=== PATIENT | male | born 1970 | race Caucasian/White ===

== ENCOUNTER 2016-08-30 18:50 | Inpatient (IN) | payer MEDICARE, OTHER ==
--- NOTE | ~2016-08-30 | DS ---
Discharge Summary [place] [id number] [place]. [address] NAME: CALDERON DIETRICH : 68 STATUS : DIS IN PAT#: [id number] AGE: 46 ADM/REG DATE : 08/31/16 MR#: [id number] REPORT SERV DATE: 09/02/16 DICTATED BY: MOHAMUD CABRERA DATE: 09/02/16 REPORT STATUS : Draft TRANSCRIBED BY: MODL DATE: 09/02/16 ADMISSION DATE: 08/31/2016 DISCHARGE DATE: 09/02/2016 ADDENDUM: DATE OF : 09/02/2016 at 4:15 p.m. For details of the patient's hospital course, please see my previous discharge summary. The patient was made comfort measures. All pressors, antibiotics, and labs were withdrawn. The patient was kept comfortable with p.r.n. morphine and Ativan and at 4:15 p.m. on 09/02/2016. /YESENIA Mohamud Cabrera M.D. / [id number] CC: Cristian Zapien MD
--- NOTE | ~2016-08-30 | HP ---
History And Physical [place] [id number] [facility] [place]. [address] NAME: CALDERON POTTS : 68 STATUS : ADM IN [facility]#: [id number] AGE: 46 ADM/REG DATE : 08/31/16 MR#: [id number] REPORT SERV DATE: 08/31/16 DICTATED BY: WILBERT REED DATE: 08/30/16 REPORT STATUS : Draft TRANSCRIBED BY: MODL DATE: 08/30/16 DATE OF ADMISSION: 08/30/2016 CHIEF COMPLAINT: Worsening decubitus ulcer as reported by his home health nurse and abdominal pain. HISTORY OF PRESENT ILLNESS: This is a 46-year-old male with a history of spina bifid, paralyzed below his waist, chronic sacral decubitus ulcers, anxiety, depression, and a chronic neurogenic bladder with urostomy and colostomy, who presents to the emergency room at [facility] with the above-mentioned complaint. History is obtained from the patient, and reviewing data available on the [employer] system. According to Mr. Potts who actually lives in the house along with couple other people along with a caregiver as well, he was told by his home health caregiver that his sacral decubitus ulcer was getting worse and is really bad today. She advised going to the emergency room to have it looked at. He has also had some abdominal pain, mostly in the sides, both sides, which he thinks he has had for three to four days or something now. He denied any fever or chills during this time, but then he spent most of his time in bed sleeping. In the emergency room, initial workup revealed he had a urinary tract infection with possibly pyelonephritis and sepsis. He presented with hypotension which even with fluid boluses continued to decline. Hospitalist Service is asked to admit him for further evaluation and treatment. At the time of my evaluation, he was alert, awake, and oriented, was able to give a reliable history. He denied any chest pain or palpitations. He had no orthopnea. He had no cough, hemoptysis, night sweats, or weight loss. He has not had any falls or loss of consciousness. He reported no recent fevers or shaking chills. Did not have any nausea, vomiting, or diarrhea. No other history of recent hematemesis, hematochezia, or hematuria. SOCIAL HISTORY: He does not smoke, drink, or use recreational drugs. FAMILY HISTORY: Noncontributory. MEDICATIONS: His medications at home were reviewed by me in the chart today and reordered by me. REVIEW OF SYSTEMS: As in history of present illness. All other systems were reviewed in detail and quite unremarkable. PHYSICAL EXAMINATION: GENERAL: This is a pleasant 46-year-old male who is not in any acute distress. HEENT: His head is atraumatic and normocephalic. He is alert, awake, oriented to time, place, and person. His pupils are equal, reacting to light and accommodating. External History And Physical [address] [address] NAME: CALDERON POTTS : 68 STATUS : ADM IN [facility]#: [id number] AGE: 46 ADM/REG DATE : 08/31/16 MR#: [id number] REPORT SERV DATE: 08/31/16 DICTATED BY: WILBERT REED DATE: 08/30/16 REPORT STATUS : Draft TRANSCRIBED BY: YESENIA DATE: 08/30/16 ocular muscles are intact. Membranes are moist and pink. Sclerae are nonicteric. NECK: Supple with no jugular venous distention, lymphadenopathy, or thyromegaly. LUNGS: Clear to auscultation with no wheezes, rubs, or crackles. HEART: Heart sounds were regular with no murmurs, rubs, or gallops. ABDOMEN: Soft and nontender. Bowel sounds are present. There was no organomegaly. EXTREMITIES: No cyanosis, clubbing, or edema. NEUROLOGIC: Grossly intact, although he has paralysis below his waist and has spina bifid. He moves his upper extremities, and higher functions appeared intact. VITAL SIGNS: Temperature of 97.7 upon arrival, heart rate was 109, respirations were 19 a minute, and blood pressure upon arrival was 85/51. Oxygen saturations were 100% on 2-3 L via nasal cannula. LABORATORY DATA: Reviewed on the [employer] system showed a procalcitonin of 2.12. Sodium was 139, potassium 4.5, chloride 111, CO2 of 16, BUN was 76 with a creatinine of 2.49, and blood glucose was 86. His calcium today was 7.8, magnesium was not evaluated. His alkaline phosphatase was 209. ALT and AST were within normal limits. CBC showed a white blood cell count of 15,000, hemoglobin was 11.3, hematocrit 36.1, and platelet count was 465,000. His urinalysis today showed large leukocyte esterase, nitrite was negative. There were 128 wbc's and many bacteria. Films of the chest x-ray were reviewed by me on the PACS today and interpreted by me. Per my interpretation, there is spinal hardware, no cardiomegaly, lung degroot were clear with no lobar consolidations or effusions. A 12-lead EKG done in the emergency room was reviewed and interpreted by me. There is sinus tachycardia with a rate of 103. IMPRESSION: 1. Worsening sacral decubitus ulcers. 2. Urinary tract infection, pyelonephritis. 3. Septic shock. 4. Acute on chronic kidney disease. 5. Anxiety and depression. 6. Metabolic acidosis. 7. Spina bifid. PLAN: We will admit the patient to the Hospitalist Service in the Medical Intermediate Care Unit due to his hypotension and septic shock. We will start him on aggressive volume replacement. We will give him another liter of lactated Ringer's and continue replacement therapy and if that does not bring his blood pressures up we will start him on Levophed intravenously to keep his mean arterial pressure greater than 65 mmHg. He may need another access as well and this is currently being discussed. I may have to put a central line in. Meanwhile, we will go ahead and follow chemistry, electrolytes, and CBC in the morning and replete as needed. We will be following this with a repeat lactate in three hours. We will History And Physical [address] [address] NAME: CALDERON POTTS : 68 STATUS : ADM IN [facility]#: [id number] AGE: 46 ADM/REG DATE : 08/31/16 MR#: [id number] REPORT SERV DATE: 08/31/16 DICTATED BY: WILBERT REED DATE: 08/30/16 REPORT STATUS : Draft TRANSCRIBED BY: YESENIA DATE: 08/30/16 also get Wound Care and consult Dr. Rouse to see his sacral decubitus ulcer and do what we need to do. I have discussed the above plans with the patient, explained to him about seriousness of his current illness and prognosis. He understands, wishes to be told everything and agrees with the above plan. He will be on unfractionated heparin for DVT prophylaxis while he is here. Hospitalist Service will be following him during his stay here. Total critical care time spent with the patient will be 50 minutes. HUMBLE Wilbert Reed M.D. / [phone]
--- NOTE | ~2016-08-30 | CN ---
Consultation Report [facility] [address] [place]. [address] NAME: CALDERON DIETRICH : 68 STATUS : ADM IN [facility]#: [id number] AGE: 46 ADM/REG DATE : 08/31/16 MR#: [id number] REPORT SERV DATE: 08/31/16 DICTATED BY: ARAM MERCEDES DATE: 08/31/16 REPORT STATUS : Draft TRANSCRIBED BY: MODL DATE: 08/31/16 CARDIOVASCULAR CONSULTATION DATE OF CONSULTATION: 08/31/2016 INDICATION: Elevated troponin. HISTORY OF PRESENT ILLNESS: The patient is a 46-year-old man with a history of spina bifida and paraplegia. He has a history of a neurogenic bladder, status post urostomy and colostomy. He is admitted to [facility] with a worsening and large sacral decubitus ulcer. He was subsequently found to have a urinary tract infection and urinary sepsis with severe hypotension. He is now in the medical intensive care unit on 45 mcg of Levophed and on vasopressin. He is tachycardic, in sinus tachycardia to the 130s. In this setting, his troponin has increased from 0.71 to 6.76. He has no symptoms of chest pain or dyspnea. He is awake and alert. His EKG shows sinus tachycardia with nonspecific T-wave abnormalities, low voltage, but no evidence of an ST-elevation [place]. PAST MEDICAL HISTORY: 1. Spina bifida. 2. Paraplegia. 3. Decubitus ulcers. 4. Neurogenic bladder. 5. Status post urostomy. 6. Status post colonoscopy. SOCIAL HISTORY: He lives in [place] [facility]. He does not smoke or drink alcohol. FAMILY HISTORY: There is no family history of early coronary artery disease. REVIEW OF SYSTEMS: A complete review of systems was obtained, which is negative in detail, except as mentioned above in the HPI. PHYSICAL EXAMINATION: BLOOD PRESSURE: 100/60. PULSE: 130 and regular. RESPIRATIONS: 14. GENERAL: Comfortable, in no acute distress. HEENT: Anicteric. No xanthelasma. Lips without cyanosis. NECK: No JVD. Carotids 2+ and symmetric. No carotid bruits. LUNGS: CTA bilaterally. No wheezes or rhonchi. No accessory muscle use. COR: Tachycardic. Normal S1 and S2. ABD: Soft, nontender, nondistended. Normal bowel sounds. No abdominal bruits. EXT: Both lower extremities are paralyzed with contractures. There is mild bilateral lower extremity edema. The extremities are cold and mottled. SKIN: Warm and dry. No venous stasis changes. Consultation Report [place] [address] [place]. [address] NAME: CALDERON DIETRICH : 68 STATUS : ADM IN PAT#: [id number] AGE: 46 ADM/REG DATE : 08/31/16 MR#: [id number] REPORT SERV DATE: 08/31/16 DICTATED BY: ARAM MERCEDES DATE: 08/31/16 REPORT STATUS : Draft TRANSCRIBED BY: MODGlenys DATE: 08/31/16 MS: No kyphosis. NEURO/PSYCH: Oriented x3. No anxiety or depression. LABORATORY STUDIES: Troponin initially 0.71, up to 6.76. Potassium of 4.0, creatinine of 1.91. EK-lead EKG shows sinus tachycardia, 135 beats per minute. Poor R-wave progression. Nonspecific T-wave abnormalities noted. IMPRESSION: This is a 46-year-old man with multiple chronic medical problems stemming from spina bifida and paraplegia. He is admitted with a severe septic shock in the setting of urosepsis and possibly sepsis secondary to a large sacral decubitus ulcer. He is on very high doses of pressors. I think this accounts for his troponin elevation, which for now appears most consistent with demand ischemia. I have recommended checking an echocardiogram. The patient expresses clear wishes to have any possible cardiac-related events treated conservatively. SASHA/YESENIA Aram Mercedes M.D. / [id number] CC: Cristian Zapien MD
--- NOTE | ~2016-08-30 | OP ---
Record Of Operation [facility] [address] [place]. [address] NAME: CALDERON DIETRICH : 68 STATUS : ADM IN [facility]#: [id number] AGE: 46 ADM/REG DATE : 08/31/16 MR#: [id number] REPORT SERV DATE: 08/31/16 DICTATED BY: WILBERT REED DATE: 08/31/16 REPORT STATUS : Draft TRANSCRIBED BY: MODGlenys DATE: 08/31/16 DATE OF PROCEDURE: PROCEDURE PERFORMED: Left subclavian central venous line placement. INDICATION: Severe sepsis and shock. PROCEDURE IN DETAIL: Procedure was performed emergently in the emergency room. The patient's left chest was prepped. He was completely draped and using an Arrow Triple Lumen kit, the left subclavian vein was entered without any difficulty or bleeding. A catheter was placed over guidewire using Seldinger technique in the usual fashion. Lines were flushed and catheter was secured in place. A postprocedure chest x-ray was viewed by me and it had no complications. The catheter was in good position. The patient tolerated the procedure well and vitals were stable. We will let nursing staff know as well. /YESENIA Wilbert Reed M.D. / [id number] CC: Cristian Zapien MD
--- NOTE | ~2016-08-30 | DS ---
Discharge Summary [facility] [address] [place]. [address] NAME: CALDERON DIETRICH : 68 STATUS : ADM IN [facility]#: [id number] AGE: 46 ADM/REG DATE : 08/31/16 MR#: [id number] REPORT SERV DATE: 09/02/16 DICTATED BY: MOHAMUD CABRERA DATE: 09/02/16 REPORT STATUS : Draft TRANSCRIBED BY: MODL DATE: 09/02/16 ADMISSION DATE: 08/31/2016 DISCHARGE DATE: 09/02/2016 ADMISSION DIAGNOSES: 1. Worsening decubitus ulcer. 2. Septic shock. 3. Urinary tract infection, possible pyelonephritis. 4. Spina bifida. 5. Acute on chronic kidney disease. 6. Anxiety and depression. 7. Metabolic acidosis. DISCHARGE DIAGNOSES: 1. Septic shock. 2. Urinary tract infection with gram-negative rola. 3. Type 2 stress-induced myocardial infarction. 4. Acute kidney injury. 5. Persistent metabolic acidosis. 6. Respiratory failure. The remainder of the diagnoses are as above. HOSPITAL COURSE: This is a 46-year-old patient, who was admitted to the Hospitalist Service from his [facility] and has a known diagnosis of paraplegia, chronic sacral decubitus ulcers, neurogenic bladder, colostomy, urostomy, previous history of sepsis in 11/2015 that was associated with acute kidney injury. The patient initially was seen by the hospitalist service, but then became hypotensive and had a central line placed in the emergency room and then transferred to the MICU, where the Critical Care Service took over. The patient was cultured and as of this dictation, blood cultures that were drawn on 08/30 are negative. Urinary culture is growing out greater than 100,000 colonies of gram-negative rods. The patient was then started on Zosyn and vancomycin and had a tremendous leukocytosis, up to as high as 86,000 as of this dictation and so his antibiotic was changed to Merrem with discontinuation of vancomycin. He had a persistent hypotension. Cortisol level was checked and was 14.6. The patient was then subsequently started on Solu-Cortef at 100 mg IV q.6. He required Levophed. The patient continued to be hypotensive and required epinephrine, which eventually was transitioned to Levophed and vasopressin. The Levophed drip was changed to weight based and on 09/02, we maxed out the accepted dosage on the Levophed and the vasopressin with very poor response to blood pressure; in fact, blood pressure was not even registering by cuff only, a mean was obtained. The patient has a POLST form from his previous hospitalization, and code status was discussed with both the mother and Osmin Alegria, who is the patient's substation wireman and apparent POA, although paperwork was never able to be produced. As per the patient's wishes and his own signature on his POLST form, he wishes to be a DNR and in fact, comfort measures. It was decided that the patient undergo conservative treatment with IV antibiotics, fluids, and pressors in hopes that there would be improvement. He was also seen by Cardiology, Dr. Gonzalez White for elevated troponins, and it was thought that his troponins were elevated secondary to his septic shock and high-dose Discharge Summary [address] [address] NAME: CALDERON DIETRICH : 68 STATUS : ADM IN PAT#: [id number] AGE: 46 ADM/REG DATE : 08/31/16 MR#: [id number] REPORT SERV DATE: 09/02/16 DICTATED BY: MOHAMUD CABRERA DATE: 09/02/16 REPORT STATUS : Draft TRANSCRIBED BY: YESENIA DATE: 09/02/16 pressors, most consistent with demand ischemia. Echocardiogram was done on 08/31, which showed an ejection fraction of 10% to 15% without any evidence of left ventricular thrombus. The patient continued to deteriorate throughout the 09/02. His condition was discussed both with Osmin Alegria and the patient's mother. Since he was not responding to aggressive therapy with pressors, IV fluids and antibiotics, it was thought best to make the patient comfort measure as per his wishes, so on the afternoon of 09/02, pressors, antibiotics, BiPAP, lab work, and chest x-rays were all discontinued, and the patient was made comfort measures with removal of BiPAP and just use of oxygen. The patient will be kept comfortable with IV morphine and IV Ativan. /MODL Mohamud Cabrera M.D. / [id number] CC: Cristian Zapien MD
--- NOTE | ~2016-08-30 | CN ---
Consultation Report [facility] [address] [place]. [address] NAME: CALDERON DIETRICH : 68 STATUS : ADM IN PAT#: [id number] AGE: 46 ADM/REG DATE : 08/31/16 MR#: [id number] REPORT SERV DATE: 08/31/16 DICTATED BY: LILLIAN ROUSE III DATE: 08/31/16 REPORT STATUS : Draft TRANSCRIBED BY: MODL DATE: 08/31/16 DATE OF CONSULTATION: 08/31/2016 HISTORY OF PRESENT ILLNESS: The patient is a 46-year-old white male with long history of sacral decubitus ulcers and other skin breakdown areas secondary to his spina bifida and functional paraplegia with history of hydrocephalus. He was brought in with sepsis secondary to the above problems. He has a history of septic shock and worsening sacral decubitus ulcers as well as some other leg ulcers, especially on the right side. He has a urinary tract infection; acute kidney injury with chronic kidney disease, superimposed; leukocytosis; anxiety and depression, situational; history of neurogenic bladder; spina bifida with hydrocephaly and a shunt; sinus tachycardia; and metabolic acidosis. The patient has a long history of problems, including paraplegia; shunt placement for hydrocephaly; spina bifida, scoliosis, back surgery, multiple; colostomy, longstanding; ileostomy with ileal loop urostomy; chronic kidney disease; frequent UTIs; history of longstanding pressure ulcers, treated in the past with incision, drainage and other therapies; history of anxiety and depression. He had leg surgery as a child, but none recently. SOCIAL HISTORY: He lives with friend in a mobile home with hospital bed and wheelchair with home health care by [facility] for cure of his decubiti. The patient has negative social history for alcohol and tobacco. PHYSICAL EXAMINATION: The patient is a 46-year-old white male with great distortion on physical exam. He has neck stiffening from osteoarthritis. Chest was with decreased inspiratory effort. Heart, tachycardia over 100. His abdomen was soft with urostomy and colostomy, but no particular tenderness. He has lots of distortion from his pelvis distally. He has a sacral area that is a massive area involved that is 25 x 33 x 0.5 cm stage IV breakdown decubitus with some minimal bone erosion that is palpable with necrotic slough at breakdown noted. He has a right lateral leg ulceration that is 5 x 3 cm with a depth of 0.8, this is from a wheelchair trauma that is seropurulent. He also has a right lateral distorted foot with an ulcer on the lateral aspect at the fifth metatarsophalangeal junction that is 2 x 1.7 x 0.4 ulceration. He has some breakdown even in the left heel areas that is not fully ulcerated. ASSESSMENT AND PLAN: Would recommend continuing with the Clinitron bed, offload. We will use Santyl ointment as an enzymatic debrider to all the ulcers using as a thin film, changed daily with Aquacel Ag for absorption and burn fluffs. Soft heel protector has been recommended. Zinc oxide to the periwounds and the left heel as well as Trey one packet b.i.d. to help with his supplementation of his malnutrition, which is clearly in need of nutritional support. At this time, there is no indication for mechanical debridement. Primarily working on offloading, enzymatic debridement, and nutritional supplementation as the treatment of choice. Orders have been left and the patient explained as to the plan. He is very hesitant to use the Trey since he prefers the protein shakes, which may be a problem from a compliance standpoint. Consultation Report [address] [place]. [address] NAME: CALDERON DIETRICH : 68 STATUS : ADM IN [facility]#: [id number] AGE: 46 ADM/REG DATE : 08/31/16 MR#: [id number] REPORT SERV DATE: 08/31/16 DICTATED BY: LILLIAN ROUSE III DATE: 08/31/16 REPORT STATUS : Draft TRANSCRIBED BY: YESENIA DATE: 08/31/16 LARRY/YESENIA Lillian Rouse III, M.D. / [id number] CC: Cristian Zapien MD
[~2016-08-30 18:50] MED LIST: LEVAQUIN5T PO; MULTIPLE VIT PO; VALIUM10 MG PO; VIBRATAB100 MG PO; ZOFRAN4 PO
[2016-08-30 21:34] LABS: BASOPHILS 0.7 %; EOSINOPHILS 1.1 %; EOSINOPHILS ABSOLUTE 0.16 10/3/uL (0.0-0.53); ER CBC TAT 0 Hrs 21 Mins; HEMATOCRIT 36.1 % (40.0-51.0); HEMOGLOBIN 11.3 g/dL (13.6-17.8); IMMATURE GRANULOCYTES 1.2 %; IMMATURE GRANULOCYTES ABSOLUTE 0.18 10/3/uL (0.0-0.11); LYMPHOCYTES 14.4 %; LYMPHOCYTES ABSOLUTE 2.16 10/3/uL (0.67-4.30); MANUAL DIFF NO %; MEAN CORPUS HGB CONC 31.3 g/dL (32.0-36.0); MEAN CORPUSCULAR HEMOGLOB 26.5 pg (26.0-34.0); MEAN CORPUSCULAR VOLUME 84.7 fL (80-100); MONOCYTES 11.3 %; MONOCYTES ABSOLUTE 1.69 10/3/uL (0.21-1.20); NEUTROPHILS 71.3 %; NEUTROPHILS ABSOLUTE 10.68 10/3/uL (2.02-8.40); PLATELET COUNT 465 10/3/uL (150-400); RED CELL COUNT 4.26 10/6/uL (4.7-6.1)
[2016-08-30 21:38] LABS: ASCORBIC ACID (UR NOT ORDER) NEG (NEG); BILIRUBIN, URINE NEGATIVE (NEG); ER URINALYSIS TAT 0 Hrs 25 Mins; KETONE, URINE NEGATIVE (NEG); LEUKOCYTE ESTERASE(NOT OR LARGE (NEG); WBC (NOT ORDERED) (RFLEX) 128 (0-5)
[2016-08-30 21:42] LABS: NITRITE (URINE) NEG (NEG)
[2016-08-30 21:51] LABS: CALCIUM, SERUM 7.8 MG/DL (8.5-10.4); CHLORIDE, SERUM 111 MMOL/L (96-112); CO2 (CARBON DIOXIDE) 16 MMOL/L (24-34); SGPT(ALT) 20 U/L (5-65); SODIUM, SERUM 139 MMOL/L (135-148); TOTAL BILIRUBIN 0.3 MG/DL (0-1.2); TOTAL PROTEIN 5.9 G/DL (6.0-8.5)
[2016-08-30 21:52] LABS: A/G RATIO 0.3 (0.7-1.9); ALBUMIN 1.2 G/DL (3.5-5.0); ALKALINE PHOSPHATASE 209 U/L (45-117); BUN (BLOOD UREA NITROGEN) 76 MG/DL (6-23); CREATININE 2.49 MG/DL (0.70-1.30); GFR AFRICAN AMERICAN 34 ML/MIN (>=60); GFR NON AFRICAN AMERICAN 30 ML/MIN (>=60); GLOBULIN 4.7 G/DL (2.5-4.1); GLUCOSE, SERUM 86 MG/DL (60-99); POTASSIUM, SERUM 4.5 MMOL/L (3.5-5.3); SGOT(AST) 14 U/L (5-40)
[2016-08-30 22:04] LABS: BAND NEUTROPHILS 4 %; EOSINOPHILS 2 %; ER DIFF TAT 0 Hrs 51 Mins; LYMPHOCYTES 7 %; LYMPHOCYTES ABSOLUTE (CALC) 1.05 10/3/uL (0.67-4.30); MONOCYTES 4 %; NEUTROPHILS ABSOLUTE (CALC) 13.05 10/3/uL (2.02-8.40); PLATELET ESTIMATE SLT INC (ADEQUATE); SEGMENTED NEUTROPHIL (0) 83 %; TOTAL NUCLEATED CELLS 100
[2016-08-30 22:05] LABS: RBC MORPHOLOGY NORM (NORMAL)
[2016-08-30 22:16] LABS: PROCALCITONIN 2.12 ng/mL (<0.5)
[2016-08-30] MEDS ORDERED: DOX25 PO (22:57)
[2016-08-30] MEDS ORDERED: SODBICAR10 PO (22:57)
[2016-08-30] MEDS ORDERED: MAGOX4 PO (22:58)
[2016-08-30] MEDS ORDERED: MINOCIN100 PO (22:58)
[2016-08-30] MEDS ORDERED: VALIUM10 MG PO (22:59)
[2016-08-31 02:06] LABS: LACTATE 1.6 MMOL/L (0.3-2.4)
[2016-08-31 06:15] LABS: HEMATOCRIT 33.4 % (40.0-51.0); HEMOGLOBIN 10.8 g/dL (13.6-17.8); MEAN CORPUS HGB CONC 32.3 g/dL (32.0-36.0); MEAN CORPUSCULAR HEMOGLOB 26.7 pg (26.0-34.0); MEAN CORPUSCULAR VOLUME 82.5 fL (80-100); MEAN PLATELET VOLUME 9.7 fL (9.2-13.0); PLATELET COUNT 498 10/3/uL (150-400); RBC DISTRIBUTION WIDTH 16.9 % (12.0-16.0); RED CELL COUNT 4.05 10/6/uL (4.7-6.1)
[2016-08-31 06:16] LABS: MANUAL DIFF YES %; WHITE BLOOD CELLS 24.8 10/3/uL (4.5-10.5)
[2016-08-31 06:26] LABS: CALCIUM, SERUM 7.7 MG/DL (8.5-10.4); CHLORIDE, SERUM 111 MMOL/L (96-112); CO2 (CARBON DIOXIDE) 16 MMOL/L (24-34); SODIUM, SERUM 140 MMOL/L (135-148)
[2016-08-31 06:27] LABS: BUN (BLOOD UREA NITROGEN) 58 MG/DL (6-23); CREATININE 1.91 MG/DL (0.70-1.30); GFR AFRICAN AMERICAN 47 ML/MIN (>=60); GFR NON AFRICAN AMERICAN 41 ML/MIN (>=60); GLUCOSE, SERUM 212 MG/DL (60-99); PHOSPHORUS, SERUM 3.3 MG/DL (2.5-4.5)
[2016-08-31 06:50] LABS: BAND NEUTROPHILS 4 %; IMMATURE GRANS ABSOLUTE (CALC) 0.25 10/3/uL (0.0-0.11); LYMPHOCYTES 5 %; LYMPHOCYTES ABSOLUTE (CALC) 1.24 10/3/uL (0.67-4.30); METAMYELOCYTES 1 %; MONOCYTES 6 %; MONOCYTES ABSOLUTE (CALC) 1.49 10/3/uL (0.21-1.20); NEUTROPHILS ABSOLUTE (CALC) 21.82 10/3/uL (2.02-8.40); PLATELET ESTIMATE SLT INC (ADEQUATE); RBC MORPHOLOGY NORM (NORMAL); SEGMENTED NEUTROPHIL (0) 84 %; TOTAL NUCLEATED CELLS 100
[2016-08-31 07:28] LABS: CPK 25 U/L (0-200); TROPONIN I 0.17 NG/ML (<0.05)
[2016-09-01 05:39] LABS: CALCIUM, SERUM 7.7 MG/DL (8.5-10.4); CHLORIDE, SERUM 110 MMOL/L (96-112); GLUCOSE, SERUM 178 MG/DL (60-99); SODIUM, SERUM 138 MMOL/L (135-148)
[2016-09-01 05:49] LABS: BUN (BLOOD UREA NITROGEN) 63 MG/DL (6-23); CO2 (CARBON DIOXIDE) 7 MMOL/L (24-34); CREATININE 2.64 MG/DL (0.70-1.30); GFR AFRICAN AMERICAN 32 ML/MIN (>=60); GFR NON AFRICAN AMERICAN 28 ML/MIN (>=60); PHOSPHORUS, SERUM 7.4 MG/DL (2.5-4.5); POTASSIUM, SERUM 5.3 MMOL/L (3.5-5.3)
[2016-09-01 05:54] LABS: MEAN CORPUSCULAR HEMOGLOB 26.6 pg (26.0-34.0); MEAN PLATELET VOLUME 10.2 fL (9.2-13.0); NUCLEATED RED BLOOD CELLS 0.1 /100WBC (0-0); RBC DISTRIBUTION WIDTH 17.4 % (12.0-16.0)
[2016-09-01 05:55] LABS: HEMATOCRIT 45.5 % (40.0-51.0); HEMOGLOBIN 13.6 g/dL (13.6-17.8); MEAN CORPUS HGB CONC 29.9 g/dL (32.0-36.0); MEAN CORPUSCULAR VOLUME 88.9 fL (80-100); PLATELET COUNT 338 10/3/uL (150-400); RED CELL COUNT 5.12 10/6/uL (4.7-6.1); WHITE BLOOD CELLS 82.5 10/3/uL (4.5-10.5)
[2016-09-01 05:57] LABS: MANUAL DIFF YES %
[2016-09-01 06:50] LABS: ANISOCYTOSIS 1+ (5-10/OIF) (0-5/OIF); BAND NEUTROPHILS 14 %; GIANT PLATELET RARE; IMMATURE GRANS ABSOLUTE (CALC) 2.48 10/3/uL (0.0-0.11); LYMPHOCYTES 7 %; LYMPHOCYTES ABSOLUTE (CALC) 5.78 10/3/uL (0.67-4.30); METAMYELOCYTES 3 %; MONOCYTES 6 %; MONOCYTES ABSOLUTE (CALC) 4.95 10/3/uL (0.21-1.20); PLATELET ESTIMATE ADQ (ADEQUATE); SEGMENTED NEUTROPHIL (0) 70 %; TOTAL NUCLEATED CELLS 100
[2016-09-01 08:43] LABS: INSTRUMENT SERIAL # 8083; PO2 (O2 TENSION) 53 MMHG (79-93)
[2016-09-01 08:44] LABS: CARBOXYHEMOGLOBIN 0.7 % (0-3); HEMOBLOGIN CONTENT 12.5 G/DL (14-18); METHEMOGLOBIN 0.4 % (0-3)
[2016-09-01 09:00] LABS: BE (BASE EXCESS) -13.2 MEQ/L (0 +/- 2.5); BIPAP 16/8 cm.H2O; CARBOXYHEMOGLOBIN 0.6 % (0-3); HEMOBLOGIN CONTENT 12.6 G/DL (14-18); INSTRUMENT SERIAL # 8083; METHEMOGLOBIN 0.6 % (0-3); O2 CONTENT 11.6 VOL% (18-24); PCO2 (CO2 TENSION) 43 MMHG (35-45); PO2 (O2 TENSION) 38 MMHG (79-93); SAMPLE Arterial; pH 7.16 (7.37-7.43)
[2016-09-01 11:20] LABS: BE (BASE EXCESS) -8.7 MEQ/L (0 +/- 2.5); BIPAP 16/8 cm.H2O; CARBOXYHEMOGLOBIN 0.1 % (0-3); HCO3 (ACTUAL BICARBONATE) 18.2 MEQ/L (23-27); HEMOBLOGIN CONTENT 12.4 G/DL (14-18); INSTRUMENT SERIAL # 8083; METHEMOGLOBIN 0.3 % (0-3); O2 CONTENT 14.3 VOL% (18-24); PCO2 (CO2 TENSION) 43 MMHG (35-45); PO2 (O2 TENSION) 48 MMHG (79-93); SAMPLE Arterial; pH 7.25 (7.37-7.43)
[2016-09-02 07:27] LABS: CALCIUM, SERUM 7.1 MG/DL (8.5-10.4); CHLORIDE, SERUM 108 MMOL/L (96-112); CREATININE 3.13 MG/DL (0.70-1.30); GFR AFRICAN AMERICAN 26 ML/MIN (>=60); GFR NON AFRICAN AMERICAN 22 ML/MIN (>=60); POTASSIUM, SERUM 5.1 MMOL/L (3.5-5.3); SODIUM, SERUM 139 MMOL/L (135-148)
[2016-09-02 07:28] LABS: BUN (BLOOD UREA NITROGEN) 67 MG/DL (6-23); CO2 (CARBON DIOXIDE) 14 MMOL/L (24-34); GLUCOSE, SERUM 120 MG/DL (60-99)
[2016-09-02 09:40] LABS: MEAN CORPUS HGB CONC 30.6 g/dL (32.0-36.0); MEAN CORPUSCULAR HEMOGLOB 26.1 pg (26.0-34.0); NUCLEATED RED BLOOD CELLS 0.2 /100WBC (0-0); RBC DISTRIBUTION WIDTH 17.6 % (12.0-16.0)
[2016-09-02 09:53] LABS: HEMATOCRIT 33.3 % (40.0-51.0); HEMOGLOBIN 10.2 g/dL (13.6-17.8); MEAN CORPUSCULAR VOLUME 85.2 fL (80-100); PLATELET COUNT 224 10/3/uL (150-400); RED CELL COUNT 3.91 10/6/uL (4.7-6.1); WHITE BLOOD CELLS 86.7 10/3/uL (4.5-10.5)
[2016-09-02 09:54] LABS: MANUAL DIFF YES %
[2016-09-02 10:33] LABS: BAND NEUTROPHILS 3 %; HYPOCHROMIA 1+ (3-10/OIF) (0-2/OIF); MONOCYTES 4 %; MONOCYTES ABSOLUTE (CALC) 3.47 10/3/uL (0.21-1.20); NEUTROPHILS ABSOLUTE (CALC) 83.23 10/3/uL (2.02-8.40); PLATELET ESTIMATE ADQ (ADEQUATE); SEGMENTED NEUTROPHIL (0) 93 %; TOTAL NUCLEATED CELLS 100
[2016-09-02 11:03] LABS: INFLUENZA A SCREEN NEGATIVE (NEGATIVE); INFLUENZA B SCREEN NEGATIVE (NEGATIVE)
[2016-09-02 12:48] LABS: ALBUMIN 1.2 G/DL (3.5-5.0); CHLORIDE, SERUM 105 MMOL/L (96-112); CREATININE 3.14 MG/DL (0.70-1.30); GFR AFRICAN AMERICAN 26 ML/MIN (>=60); GFR NON AFRICAN AMERICAN 22 ML/MIN (>=60); PHOSPHORUS, SERUM 7.1 MG/DL (2.5-4.5); POTASSIUM, SERUM 4.6 MMOL/L (3.5-5.3); SODIUM, SERUM 141 MMOL/L (135-148)
[2016-09-02 12:49] LABS: BUN (BLOOD UREA NITROGEN) 62 MG/DL (6-23); CALCIUM, SERUM 6.6 MG/DL (8.5-10.4); CO2 (CARBON DIOXIDE) 25 MMOL/L (24-34); GLUCOSE, SERUM 208 MG/DL (60-99)
== END 2016-09-02 17:18 | disposition expired | DRG 871 ==
LOC: ER 18:50 → IMCU 08-31 01:51 → MIC 08-31 03:38
PROVIDERS: Emergency Medicine; Internal Medicine; Internal Medicine Pulmonary Disease
PROC: 02HV33Z Insertion of Infusion Device into Superior Vena Cava, Percutaneous Approach (ICD-10-PCS; principal; 2016-08-31)
PROC: B5171ZA Fluoroscopy of Left Subclavian Vein using Low Osmolar Contrast, Guidance (ICD-10-PCS; principal; 2016-08-31)
DX: A41.9 Sepsis, unspecified organism (principal); R65.21 Severe sepsis with septic shock; I21.4 Non-ST elevation (NSTEMI) myocardial infarction; J96.01 Acute respiratory failure with hypoxia; N17.9 Acute kidney failure, unspecified; G82.20 Paraplegia, unspecified; E87.2 Acidosis; L89.154 Pressure ulcer of sacral region, stage 4; M41.9 Scoliosis, unspecified; N39.0 Urinary tract infection, site not specified; Q05.4 Unspecified spina bifida with hydrocephalus; I51.81 Takotsubo syndrome; F32.9 Major depressive disorder, single episode, unspecified; F41.9 Anxiety disorder, unspecified; N31.9 Neuromuscular dysfunction of bladder, unspecified; Z93.3 Colostomy status; Z93.6 Other artificial openings of urinary tract status; Z88.1 Allergy status to other antibiotic agents; Z91.040 Latex allergy status; Z88.0 Allergy status to penicillin; Z79.899 Other long term (current) drug therapy; Z66 Do not resuscitate; Z51.5 Encounter for palliative care; R62.7 Adult failure to thrive; E86.0 Dehydration
CPT/HCPCS: 71010; 80048; 80053; 80069; 80202; 81001; 82533; 82550; 82805; 83605; 83735; 84100; 84145; 84484; 85025; 87040; 87077; 87086; 87186; 87449; 87641; 87804; 93005; 94640; 94660; 96374; 96375; 99285; A9270-GY; C8929; J0692; J1720; J2185; J2543; J3370; P9045; Q9957